=== PATIENT | male | born 1990 | race Two or more races ===

== ENCOUNTER 2019-10-20 23:14 | Emergency (ER) | payer OTHER ==
[~2019-10-20] VITALS: Ht 170.2 cm; Wt 74.8 kg
[2019-10-21] MEDS ORDERED: FAMOTIDINE (10MG/ML) 2ML VL IV ONE (02:00)
[2019-10-21] MEDS ORDERED: ASPirin 81 mg TAB PO ONE (02:00)
[2019-10-21] MEDS ORDERED: MORPHINE SULFATE 4 MG/ML SYR/VIAL IV ONE (02:00)
[2019-10-21 02:41] LABS: Basophils # (auto) 0 uL; Basophils % (auto) 0.5 % (0.0-2.0); Eosinophils # (auto) 0.1 uL; Eosinophils % (auto) 1.4 % (0.0-7.0); Hematocrit 42.7 % (41.0-53.0); Hemoglobin 15.1 g/dL (13.5-17.5); Lymphocytes # (auto) 2.3 uL; Lymphocytes % (auto) 28.3 % (10.0-50.0); Mean Corpuscular Hemoglobin 31.4 pg (28.0-32.0); Mean Corpuscular Hgb Conc. 35.5 g/dL (32.0-36.0); Mean Corpuscular Volume 88.5 fL (80.0-100.0); Monocytes # (auto) 0.8 uL; Monocytes % (auto) 9.5 % (0.0-12.0); Neutrophils % (auto) 60.3 % (37.0-80.0); Nucleated Red Blood Cells % 0.3 %; Platelet Count (auto) 261 10^3/uL (140-450); Red Blood Cells 4.82 10^6/uL (4.5-5.90); Red Cell Distribution Width 12.7 % (11.8-14.3); White Blood Cell 8.3 10^3/uL (4.4-10.8)
[2019-10-21 02:57] LABS: INR 1.08 (0.9-1.15); Partial Thromboplastin Time 30.8 sec (23.64-32.05)
[2019-10-21 03:03] LABS: Alanine Aminotransferase 38 U/L (16-61); Anion Gap 8 (5-15); Aspartate Aminotransferase 16 U/L (15-37); Blood Urea Nitrogen 9 mg/dL (7-18); Calcium 8.4 mg/dL (8.5-10.1); Carbon Dioxide 24 mmol/L (21-32); Chloride 107 mmol/L (98-107); GFR African American 206 mL/min; GFR Non-African American 171 mL/min; Glucose 103 mg/dL (74-106); Magnesium 2.1 mg/dL (1.6-2.6); Sodium 139 mmol/L (136-145)
[2019-10-21 03:08] LABS: Alkaline Phosphatase 96 U/L (45-117); Bilirubin, Total 0.3 mg/dL (0.2-1.0)
[2019-10-21] MEDS ORDERED: IOHEXOL 350 MG/ML 100ML IJ ONE (03:15)
[2019-10-21 05:17] VITALS: BP 111/75
[2019-10-21] MEDS ORDERED: NITROGLYCERIN 0.4 MG SL TAB SL ONE (10:00)
== END 2019-10-21 04:55 | disposition home or self-care (01) ==
LOC: EDBD 23:14 → EEVIPCON 23:23 → ER 23:23
DX: R07.89 Other chest pain (principal); K21.9 Gastro-esophageal reflux disease without esophagitis; Z86.73 Personal history of transient ischemic attack (TIA), and cerebral infarction without residual deficits
CPT/HCPCS: 36415; 71275; 80053; 83735; 83880; 84443; 84484; 85025; 85379; 85610; 85730; 93005; 96374; 96375; 99284; J2270; J3490; Q9967